=== PATIENT | female | born 1970 | race Caucasian/White ===

== ENCOUNTER 2017-10-20 08:50 | Emergency (ER) | payer MEDICAID ==
[~2017-10-20] VITALS: Ht 170.2 cm; Wt 61.5 kg
[~2017-10-20 08:50] MED LIST: AMOX500C PO; CHLO25CA PO; DICL75 PO; GUAN2ER OR; LEVE500 PO; MELO15 PO; SUBO2MIS SL; SULF-154 PO; TAMS0.4C67 PO; VARE1 OR
[2017-10-20 08:52] VITALS: BP 174/94; PULSE 104; RESP 14; TEMP 98; O2SAT 100
[2017-10-20 09:08] VITALS: BP 184/86; PULSE 81; RESP 15; O2SAT 100
--- NOTE | 2017-10-20 09:56 | PD ---
HPI Chief Complaint: Medical Clearance Time Seen by Provider: 09:16 Travel History International Travel<30 days: No Contact w/Intl Traveler<30days: No Traveled to known affect area: No History of Present Illness HPI The patient was seen and examined in the presence of the nurse. This patient presents because she wants a referral to plastic surgery. Patient has history of bilateral breast implants. A year and a half ago she discovered that her right breast implant had a leak of silicone. It has extremity stated into her axilla as noted on ultrasound done May 2016. She is not having any acute symptomatology today. Desires referral. Symptoms severity is mild. PFSH Past Medical History Arthritis: No Asthma: No Autoimmune Disease: No Blood Disorders: No Bipolar Disorder: Yes Anxiety: No Depression: Yes Heart Rhythm Problems: No Cancer: No Cardiovascular Problems: No High Cholesterol: No Chemotherapy: No Chest Pain: No Congestive Heart Failure: No COPD: No Cerebrovascular Accident: No Diabetes: No Diminished Hearing: No Endocrine: No Gastrointestinal Disorders: No GERD: No Glaucoma: No Genitourinary: No Headaches: Yes Hepatitis: No Hiatal Hernia: No Hypertension: No Immune Disorder: No Kidney Stones: No Musculoskeletal: Yes Neurologic: No Psychiatric: No Reproductive: No Respiratory: No Migraines: No Myocardial Infarction: No Radiation Therapy: No Renal Failure: No Seizures: Yes Sleep Apnea: No Thyroid Disease: No Ulcer: No Tetanus Vaccination: Unknown Influenza Vaccination: No ?: Not LMP: 3 weeks ago : 3 Para: 3 Ovarian Cysts: Yes Tubal Ligation: Yes Past Surgical History Abdominal Surgery: Yes (APPENDECTOMY 1982) AICD: No Appendectomy: Yes Arteriovenous Shunt: No Body Medical Devices: BELLY BUTTOM Cardiac Surgery: No Cholecystectomy: No Ear Surgery: No Endocrine Surgery: No Eye Surgery: No Genitourinary Surgery: No Gynecologic Surgery: No Insulin Pump: No Joint Replacement: No Oral Surgery: No Pacemaker: No Thoracic Surgery: No Other Surgery: Yes ( BREAST AUGMENTATION 1990) Social History Alcohol Use: Yes (occ) Tobacco Use: Yes (2 PPD) Substance Use: No (denies) Allergies-Medications (Allergen,Severity, Reaction): Coded Allergies: No Known Allergies (Verified Adverse Reaction, Unknown, 10/20/17) Reported Meds & Prescriptions Reported Meds & Active Scripts Active No Active Prescriptions or Reported Medications Review of Systems General / Constitutional: No: Fever HENT: No: Headaches Cardiovascular: No: Chest Pain or Discomfort Respiratory: No: Cough Physical Exam Narrative GASTROINTESTINAL: Abdomen soft, non-tender, nondistended. Positive bowel sounds. No hepato-splenomegaly, or palpable masses. No guarding. SKIN: Focused skin assessment reveals no rash or ulcers. Skin is warm and dry. Palpation shows no induration or nodules. Breast exam: No obvious asymmetry. No gross rupture. No erythema warmth or fluctuance. Data Data Last Documented VS Vital Signs Date Time Temp Pulse Resp B/P (MAP) Pulse Ox O2 Delivery O2 Flow Rate FiO2 10/20/17 09:08 81 15 184/86 (118) 100 Room Air 10/20/17 08:52 98.0 MDM Medical Decision Making Medical Screen Exam Complete: Yes Emergency Medical Condition: Yes Medical Record Reviewed: Yes Differential Diagnosis Silicone leak, breast nodule, abscess Narrative Course I have reviewed the patient's electronic medical record. Reviewed her ultrasound findings from May 2016. There is noted be some silicone extravasation into her axillary region from the right breast Patient should definitely follow-up with plastic surgery. It is our recommendation. Diagnosis Primary Impression: Silicone leakage from breast implant Qualified Codes: T85.43XA - Leakage of breast prosthesis and implant, initial encounter Additional Instructions: Follow-up with plastic surgery Med/Other Pt SpecificInfo: Other Scripts No Active Prescriptions or Reported Meds Disposition: DISCHARGE HOME Condition: Stable Parker Epstein MD Oct 20, 2017 09:56
== END 2017-10-20 10:13 | disposition home or self-care (01) ==
LOC: NEPD 08:50
DX: T85.43XA Leakage of breast prosthesis and implant, initial encounter (principal); F31.9 Bipolar disorder, unspecified; R56.9 Unspecified convulsions; F17.200 Nicotine dependence, unspecified, uncomplicated
CPT/HCPCS: 99282